=== PATIENT | female | born 1940 | race Caucasian/White ===

== ENCOUNTER 2020-09-20 07:59 | Outpatient (REF) | payer MEDICARE, SELFPAY ==
[2020-09-20 11:41] LABS: Hemoglobin 11.9 g/dl (12.0-16.0); Mean Corpuscular HGB Conc 33.1 g/dl (31.0-35.0); Mean Corpuscular Hemoglobin 29.5 pg (27.0-33.0); Mean Corpuscular Volume 89.3 fL (80-98); Mean Platelet Volume 8.9 fL (9.4-12.3); Platelet Count 347 X10*3/uL (160-400); Red Blood Count 4.03 X10*6/uL (4.20-5.50); Red Cell Distribution Width 13.1 % (11.0-16.0); White Blood Count 6.8 X10*3/uL (4.8-10.8)
[2020-09-20 11:52] LABS: Alanine Aminotransferase 24 U/L (0-31); Albumin Level 4.1 g/dL (3.5-5.0); Alkaline Phosphatase 96 U/L (39-117); Anion Gap 12 (12-20); Aspartate Amino Transferase 29 U/L (5-31); Bilirubin Total 0.8 mg/dL (0.0-1.0); Blood Urea Nitrogen 12 mg/dL (9-16); Calcium 9.4 mg/dL (8.4-10.2); Carbon Dioxide 25 mmol/L (22-29); Chloride 97 mmol/L (96-108); Estimated Glomerular Filt Rate > 60; Glucose Fasting 92 mg/dL (60-99); Potassium 4.4 mmol/L (3.3-5.1); Sodium 130 mmol/L (135-145)
[2020-09-20 11:53] LABS: B Type Natriuretic Peptide 197 pg/mL (<100)
== END 2020-09-20 08:00 | disposition home or self-care (01) ==
LOC: HO.HMGCLDS 07:59
PROVIDERS: PCP Internal Medicine; Visit Provider Internal Medicine
DX: I50.9 Heart failure, unspecified (principal); E87.1 Hypo-osmolality and hyponatremia
CPT/HCPCS: 36415; 80053; 83880; 85027

== ENCOUNTER 2021-01-24 09:20 | Outpatient (REF) | payer MEDICARE, SELFPAY ==
--- NOTE | 2021-01-24 09:31 | MHC.AU.ANR ---
Adult Audiological Evaluation Date of Visit: 01/24/21 Reason for Appointment: Audiological evaluation due to concern for decreased hearing. Ms. Cesar notes difficulties understanding speech, especially when in the presence of background noise. She notes that she can hear background sounds well, but feels she can't clearly understand speech. 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 Medical History: Medical History: Heart Problems, High Blood Pressure, Tobacco Use Medical History (Other): Cataract right eye, congestive heart failure, coronary artery disease, hyperlipidemia, hypoatremia Medication List: Atorvastatin 40 mg, Carvedilol 12.5 mg, Lisinopril 10 mg, Isosorbide 10 mg, aspirin 81mg Otoscopy: Right Ear: Unremarkable Left Ear: Unremarkable Tympanometry: Tympanometry performed due to: To assess integrity of the middle ear system Right Ear: Normal Middle Ear System (Type A) Left Ear: Normal Middle Ear System (Type A) Hearing Evaluation: Transducer(s) Used: Insert Earphones, Bone Conduction Method: Conventional Audiometry Stimuli Used: Pure Tones Right Ear: Description of Hearing: Mild sloping to moderately severe sensorineural hearing loss from 250-8000 Hz. Left Ear: Description of Hearing: Mild sloping to moderately severe sensorineural hearing loss from 250-8000 Hz. Speech Recognition Threshold (SRT): Method Used: Monitored Live Voice Stimuli Used: Spondee Words Right Ear: 35 dBHL Left Ear: 30 dBHL Word Discrimination: Method: Recorded Lists Word Lists Used: NU-6 Right Ear: 76% at 75 dBHL, 76% at 80 dBHL Left Ear: 76% at 75 dBHL, 76% at 80 dBHL Recommendations: Audiological re-evaluation in one year. Trial with amplification is recommended. Binaural amplification is recommended given type and degree of hearing loss and shared communication difficulties. Discussed hearing aid options with Ms. Cesar. She will consider her options and return for a hearing aid consultation if she decides she would like to proceed with hearing aids through our clinic. Medical clearance for hearing aid use is being requested from Ms. Cesar's primary care physician. Diagnosis: Primary Diagnosis: H90.3 Bilateral Sensorineural Hearing Loss Services Performed: Services Performed: Comprehensive Audiological Evaluation (CPT 96935) Tympanometry (CPT 39335) Signature: Provider: Franck Rogers, CCC-A
--- NOTE | 2021-01-24 09:33 | MHC.AU.MED ---
Medical Clearance for Hearing Instrumentation Date: 01/25/21 Patient Name: Marlene Cesar Date of : 1940 Referring Provider: Karen Silverio MD We have seen your patient on 01/24/21 and have determined that they are a candidate for amplification (See accompanying report). Specifically, they would benefit from: Hearing aid use in both ears There is a statute that addresses Medical Evaluation Requirements prior to fitting a patient with a hearing aid. According to [place] statute 265 CMR:6.03(1), (a) General. Except as provided in 265 CMR 6.03(1)(b), a hearing and speech assistant shall not sell a hearing aid unless the prospective user has presented to the hearing and speech assistant a written statement signed by a licensed physician that states that the patient's hearing loss has been medically evaluated and the patient may be considered a candidate for a hearing aid. The medical evaluation must have taken place within the preceding six months. Please note: Due to the [place] Statute referenced above, we cannot accept a signature other than that of a licensed physician. [employer] CLINICAL MANAGER and PA signatures cannot be accepted. I am in agreement with the above recommendation. There is no medical contraindication for hearing instrumentation. Physician Signature Date Physician Name (Printed)
== END 2021-01-24 09:21 | disposition home or self-care (01) ==
LOC: HO.SH 09:20
PROVIDERS: Visit Provider Internal Medicine
DX: H91.90 Unspecified hearing loss, unspecified ear (principal)
CPT/HCPCS: 92557; 92567

== ENCOUNTER 2021-02-09 08:27 | Outpatient (REF) | payer SELFPAY ==
--- NOTE | 2021-02-09 09:18 | MHC.AU.HAS ---
Hearing Aid Evaluation Date of Visit: 02/09/21 Historical Information: Description of Hearing: Mild sloping to moderately severe sensorineural hearing loss bilaterally. Current personal amplification information, if applicable: none Summary: Ms. Cesar was seen today to discuss hearing aid options. She was seen on 01/24/2021 for an audiological evaluation, at which time she was diagnosed with a bilateral hearing loss and binaural amplification was recommended. She is interested in purchasing a pair of hearing aids. She has never used hearing aids before. Discussed hearing aid styles and technologies. Patient would like to start with an entry-level, rechargeable, JAVI style hearing aid. Hearing Aid Prescription: Based on the individual?s shared listening needs, communication environments, dexterity, desire for connectivity, and personal preferences, the following prescription for amplification has been made: Right ear: Wire Worker: Phonak Model: Audeo P50-R Battery Size: Rechargeable Color: P1 - Sand Beige Lead Maintenance Technician: Size 1 M Type of Dome: Open Left ear: Left ear prescription to be same as Right Hearing Aid above: Wire Worker: Phonak Model: Audeo P50-R Battery Size: Rechargeable Color: P1 - Sand Beige Lead Maintenance Technician: Size 1 M Type of Dome: Open Plan of Care: Patient wishes to purchase hearing aids as prescribed Action Taken/Action Needed: Medical Clearance to be requested from PCP/ENT. Hearing Instrument Fitting to be scheduled when materials arrive. Hearing aids ordered. Patient paid $350 deposit today. Owes $3,550.00 at fitting. Primary Diagnosis: H90.3 Bilateral Sensorineural Hearing Loss Signature: Provider: Quinton Rogers, VERONICA-A
== END 2021-02-09 08:28 | disposition home or self-care (01) ==
LOC: HO.HAP 08:27
PROVIDERS: Visit Provider Internal Medicine
DX: Z46.1 Encounter for fitting and adjustment of hearing aid (principal); H90.3 Sensorineural hearing loss, bilateral
CPT/HCPCS: 92591

== ENCOUNTER 2021-02-22 08:27 | Outpatient (REF) | payer SELFPAY | END 2021-02-22 08:28 | disposition home or self-care (01) | LOC: HO.HAP 08:27 | PROVIDERS: Visit Provider Internal Medicine | DX: H90.3 Sensorineural hearing loss, bilateral (principal); Z46.1 Encounter for fitting and adjustment of hearing aid | CPT/HCPCS: V5261; V5299 ==

== ENCOUNTER 2021-03-16 09:25 | Outpatient (REF) | payer SELFPAY | END 2021-03-16 09:26 | disposition home or self-care (01) | LOC: HO.HAP 09:25 | PROVIDERS: Visit Provider Internal Medicine | DX: Z13.89 Encounter for screening for other disorder (principal) ==

== ENCOUNTER 2022-03-01 08:32 | Outpatient (REF) | payer MEDICARE, SELFPAY ==
[2022-03-01 11:09] LABS: MANUAL DIFF FLAG NO
[2022-03-01 11:27] LABS: Basophils Absolute Auto 0.1 X10*3/uL (0.0-0.2); Basophils Percent Auto 0.7 % (0-2); Eosinophils Absolute Auto 0.2 X10*3/uL (0.0-0.4); Eosinophils Percent Auto 2.4 % (0-4); Hematocrit 34.3 % (37.0-47.0); Hemoglobin 11.3 g/dl (12.0-16.0); Imm Gran Abs Auto 0.03 X10*3/uL (0.00-0.03); Imm Gran Pct Auto 0.3 % (0.0-0.4); Lymphocytes Absolute Auto 2.2 X10*3/uL (1.2-4.9); Lymphocytes Percent Auto 22.4 % (20-40); Mean Corpuscular HGB Conc 32.9 g/dl (31.0-35.0); Mean Corpuscular Hemoglobin 29.9 pg (27.0-33.0); Mean Corpuscular Volume 90.7 fL (80.0-98.0); Mean Platelet Volume 9.1 fL (9.4-12.3); Monocytes Absolute Auto 0.9 X10*3/uL (0.1-1.2); Monocytes Percent Auto 9.4 % (2-11); Neutrophils Absolute Auto 6.3 x10*3/uL (2.0-8.3); Neutrophils Percent Auto 64.8 % (45-73); Platelet Count 369 X10*3/uL (160-400); Red Blood Count 3.78 X10*6/uL (4.20-5.50); Red Cell Distribution Width 13.1 % (11.0-16.0); White Blood Count 9.7 X10*3/uL (4.8-10.8)
[2022-03-01 12:01] LABS: Alanine Aminotransferase 29 U/L (0-31); Albumin Level 4.1 g/dL (3.5-5.0); Alkaline Phosphatase 85 U/L (39-117); Anion Gap 13 (12-20); Aspartate Amino Transferase 37 U/L (5-31); Bilirubin Total 0.8 mg/dL (0.0-1.0); Blood Urea Nitrogen 12 mg/dL (9-16); Calcium 9.5 mg/dL (8.4-10.2); Carbon Dioxide 25 mmol/L (22-29); Chloride 98 mmol/L (96-108); Estimated Glomerular Filt Rate > 60; Glucose Random 92 mg/dL (60-115); Potassium 4.6 mmol/L (3.3-5.1); Sodium 131 mmol/L (135-145); Total Protein 7.1 g/dL (6.5-8.0)
[2022-03-01 12:04] LABS: TSH reflex Free T4 0.79 uIU/mL (0.32-4.0)
== END 2022-03-01 08:33 | disposition home or self-care (01) ==
LOC: HO.HMGCLDS 08:32
PROVIDERS: PCP Internal Medicine; Visit Provider Internal Medicine
DX: E87.1 Hypo-osmolality and hyponatremia (principal); E78.5 Hyperlipidemia, unspecified; I11.0 Hypertensive heart disease with heart failure; I50.9 Heart failure, unspecified
CPT/HCPCS: 36415; 80053; 84443; 85025

== ENCOUNTER 2022-11-23 09:42 | Outpatient (REF) | payer SELFPAY | END 2022-11-23 09:43 | disposition home or self-care (01) | LOC: HO.HAP 09:42 | PROVIDERS: Visit Provider Internal Medicine | DX: Z13.89 Encounter for screening for other disorder (principal) ==

== ENCOUNTER 2022-11-24 09:12 | Outpatient (REF) | payer SELFPAY | END 2022-11-24 09:13 | disposition home or self-care (01) | LOC: HO.HAP 09:12 | PROVIDERS: Visit Provider Internal Medicine | DX: Z13.89 Encounter for screening for other disorder (principal) ==

== ENCOUNTER 2023-08-30 12:04 | Outpatient (AMB) | payer MEDICARE, SELFPAY ==
[2023-08-30 12:10] VITALS: BP 138/82; PULSE 108; O2SAT 98; BMI 23.6
--- NOTE | 2023-08-30 12:10 | AM.OFFVISMDC ---
Intake Vital Signs 08/30/23 12:10 Height 5 ft Weight 121 lb BMI 23.6 BP 138/82 Blood Pressure Location Lt brachial Position Sitting Pulse 108 H Pulse Source Pulse Oximeter Pulse Oximetry (%) 98 Oxygen Delivery Method Room Air Intake Visit Reasons: SWV G0439 Intake Note: Pt is here today for her SWV Allergies No Known Allergies Allergy (Verified 08/30/23 12:10) HPI SWV G0439 HPI Details Initiated the conversation about Advanced Directives. Advanced Directives help? patients prepare for current and future decisions about their medical treatment? and place of care. Discussed with patient that it is a process where a patients? current condition and prognosis are reviewed, their wishes for information? regarding their illness are elicited, and likely medical dilemmas are presented? and options discussed. The form can be amended as needed, reviewed yearly and? make changes as needed Initiated the conversation about Advanced Directives. Advanced Directives help? patients prepare for current and future decisions about their medical treatment? and place of care. Discussed with patient that it is a process where a patients? current condition and prognosis are reviewed, their wishes for information? regarding their illness are elicited, and likely medical dilemmas are presented? and options discussed. The form can be amended as needed, reviewed yearly and? make changes as needed [facility] Medical History (Updated 08/30/23 @ 12:43 by Karen Silverio MD) Annual physical exam Hearing deficit Coronary artery disease Hypertension Hyperlipidemia Hyponatremia CHF, acute Tobacco abuse Cataract, right eye Family History Father Stroke Mother Asthma Social History Housing: House Patient Tobacco Use Status: Never used Tobacco e-Cigarette/Vaping Use: Never Used Current occupational status: retired Cognitive needs: No Hearing needs: No Vision needs: No Questionnaire Medicare Wellness Checkup What is your age?: 80 or older What gender do you identify with?: female During the past 4 weeks, how much have you been bothered by emotional problems such as feeling anxious, depressed, irritable, sad or downhearted, and blue?: not at all During the past 4 weeks, has your physical & emotional health limited your social activities with family, friends, neighbors, or groups?: not at all During the past 4 weeks, how much bodily pain have you generally had?: no pain During the past 4 weeks, was someone available to help you if you needed & wanted help?: yes, as much as I wanted During the past 4 weeks, what was the hardest physical activity you could do for at least 2 minutes?: moderate Can you get to places out of walking distance without help? (For eg., can you travel alone on buses, taxis or drive your car?): Yes Can you go shopping for groceries or clothes without someone's help?: Yes Can you prepare your own meals?: Yes Can you do your housework without help?: Yes Because of any health problems, do you need the help of another person with your personal care needs such as eating, bathing, dressing or getting around the house?: No Can you handle your own money without help?: Yes During the past 4 weeks, how would you rate your health in general?: very good During the past 4 weeks how have things been going for you?: very well; could hardly better Are you having difficulties driving your car?: no Do you always fasten your seat belt when you are in a car?: yes, sometimes During past 4 weeks, have you been bothered by the following: never: Falling or dizzy when standing up, Sexual problems?, Trouble eating well?, Teeth or denture problems?, Problems using the telephone? and Tiredness or fatigue? Have you fallen 2 or more times in the past year?: No Are you afraid of falling?: Yes Are you a smoker?: no During the past 4 weeks, how many drinks of wine, beer, or other alcoholic beverages did you have?: 1 drink or less per week Do you exercise for about 20 minutes 3 or more times a week?: yes, some of the time Have you been given information to help with the following?: no: Hazards in your house that might hurt you? and no: Keeping track of your medications? How often do you have trouble taking medicines the way you have been told to take them?: I always take medicine as prescribed How confident are you that you can control & manage most of your health problems?: very confident What is your race?: White Mini Mental State Exam (MMSE) Orientation What is the (year) (season) (date) (day) (month)?: year, season, date, day and month Where are we (state) (county) (town or city) (hospital) (floor)?: state, county, town or city, hospital/clinic and floor Registration Name of 3 unrelated objects clearly and slowly, then ask patient to repeat all 3 of them. (1st repeat determines score. Make sure they can repeat all three): object 1, object 2 and object 3 Attention & Calculation (CHOOSE ONE) Spell WORLD backwards (DLROW): 5 letters Recall Ask patient to repeat the 3 items from question #3.: object 1, object 2 and object 3 Language Show patient a wristwatch & ask what it is. Repeat for pencil.: watch and pencil Ask the patient to repeat the phrase 'No ifs, ands, or buts' after you.: correct Ask the patient to 'take a piece of paper with their right hand' 'fold paper in half' 'place paper on floor': take paper in right hand, fold paper in half and place paper on floor Print the sentence 'CLOSE YOUR EYES' on a piece. If patient actually closes eyes then score.: followed written direction Give patient a blank piece of paper & ask to write a sentence. Score if it contains a noun & verb.: sentence contains subject and verb Score Score: 29 PHQ-9 Over the last 2 weeks, how often have you been bothered by any of the following problems? 1. Little interest or pleasure in doing things: not at all 2. Feeling down, depressed, or hopeless: not at all 3. Trouble falling or staying asleep, or sleeping too much: not at all 4. Feeling tired or having little energy: not at all 5. Poor appetite or overeating: not at all 6. Feeling bad about yourself - or that you are a failure or have let yourself or your family down: not at all 7. Trouble concentrating on things, such as reading the newspaper or watching television: not at all 8. Moving or speaking so slowly that other people could have noticed. Or the opposite - being so fidgety or restless that you have been moving around a lot more than usual: not at all 9. Thoughts that you would be better off or of hurting yourself in some way: not at all Total score: 0 Source: Developed by Drs. Oli Reese, Melani Corona, Benny Levine and colleagues, with an educational tayolr from [employer]. Review of Systems Const All systems reviewed & are unremarkable except as noted in HPI and below Reports no additional complaints Eyes Reports no additional complaints ENT Reports no additional complaints Card Reports no additional complaints Resp Reports no additional complaints GI Reports no additional complaints Reports no additional complaints Physical Exam Vital Signs: Last Vital Signs Pulse 108 H 08/30/23 12:10 BP 138/82 08/30/23 12:10 Pulse Ox 98 08/30/23 12:10 Oxygen Delivery Method Room Air 08/30/23 12:10 BMI result Body Mass Index 23.6 Const General: no acute distress HEENT Head: Yes normal to inspection Ears: hearing grossly normal bilaterally Eyes General: appearance normal, both eyes and all related structures Neck Neck: Yes no lymphadenopathy and Yes supple Resp Effort & Inspection: normal respiratory effort Auscultation: clear to auscultation bilaterally Cardio Rhythm: regular rhythm Heart sounds: S1 normal heart sound present and S2 normal heart sound present GI Inspection: Yes normal to inspection Palpation (GI): Soft to palpation and No hepatosplenomegaly present Percussion: Yes normal to percussion Auscultation: normal bowel sounds Extrem General: Yes no clubbing, cyanosis or edema Assessment & Plan Assessment & Plan (1) CHF, acute: Comment: echo 07/2019, severely reduced LVEF, aneurysmal basal,lateral, wall, mild , mod MR cardiac cath occluded RCA07/2019, , Echo 07/2020 EF 30-40% Code(s): I50.9 - Heart failure, unspecified Plan: Continue current medications follow-up by [facility]. Patient declined fasting blood work (2) Hyperlipidemia: Code(s): E78.5 - Hyperlipidemia, unspecified Plan: Continue Lipitor (3) Hypertension: Code(s): I10 - Essential (primary) hypertension Plan: Continue current medications (4) Annual physical exam: Code(s): Z00.00 - Encounter for general adult medical examination without abnormal findings Plan: Well-balanced diet regular physical activity discussed with the patient Quality Reporting (2019) Depression/Bipolar (159/160/161/177) PHQ-9: Total score: 0 Coding Level of Care Code Medicare Subsequent (G0439) Diagnoses CHF, acute I50.9 Hyperlipidemia E78.5 Hypertension I10 Annual physical exam Z00.00 CPT Codes Advance Care Planning - Time spent: 1-15 minutes, not on file ([id number]) Advance Care Planning Advance Care Planning discussion: Exists, not on file Forms completed: Health Care Proxy Time spent: 1-15 minutes, not on file
== END 2023-08-30 12:40 | disposition home or self-care (01) ==
PROVIDERS: PCP Internal Medicine; Visit Provider Internal Medicine
DX: Z00.00 Encounter for general adult medical examination without abnormal findings (principal); I11.0 Hypertensive heart disease with heart failure; I50.9 Heart failure, unspecified; E78.5 Hyperlipidemia, unspecified
CPT/HCPCS: 1124F; G0439

== ENCOUNTER 2024-09-15 11:28 | Outpatient (AMB) | payer MEDICARE, SELFPAY ==
--- NOTE | 2024-09-15 11:29 | A.OFFVIS_ITS ---
Intake Vital Signs 09/15/24 11:30 Height 5 ft Weight 121 lb BMI 23.6 BP 118/76 Blood Pressure Location Lt brachial Position Sitting Respiration 20 Pulse 96 Pulse Source Palpation Temp 97.9 F Temp Source Oral Intake Visit Reasons: SWV G0439 Allergies No Known Allergies Allergy (Verified 09/15/24 11:33) Medication List - Last Reconciled 09/15/24 by Karen Silverio MD aspirin (Adult Aspirin Regimen) 81 mg PO DAILY atorvastatin 40 mg PO DAILY carvedilol 12.5 mg PO BID isosorbide mononitrate ER 30 mg PO DAILY lisinopril 10 mg PO DAILY HPI SWV G0439 HPI Details Initiated the conversation about Advanced Directives. Advanced Dir ectives help? patients prepare for current and future decisions about their medical treatment? and place of care. Discussed with patient that it is a process where a patients? current condition and prognosis are reviewed, their wishes for information? regarding their illness are elicited, and likely medical dilemmas are presented? and options discussed. The form can be amended as needed, reviewed yearly and? make changes as needed IPPE/AWV ? year old presents? for her ? Annual? Wellness Visit, initial visit.? Medical / Social History Reviewed? Past Medical History ?Yes? . ? [place]? of Care / Care Team list updated ?Yes . ? Surgical/Hospitalization? History ?Yes . ? Current Medications? (including OTC and supplements) ?Yes . ? Family History ?Yes? . ? Tobacco? Control form ?Yes . ? AUDIT-C (Alcohol use) form? ?Yes . ? Illicit drug use in Social? History ?Yes . ? Current diagnosis of? depression? ?No ? Appropriate PHQ2/PHQ9? completed ?Yes . ? Data entered by ?Medical? [facility] and reviewed by provider ? Fall Risk ? Fall? History? Have you had any falls with? injury in the past year? ?No . ? Have you had two or more? falls in the past year? ?No . ? Fall Risk Assessment: ?No? falls in the past year . ? HRA filled out by? the patient, reviewed by Provider and scanned. ? IPPE/AWV ? Balance? [place]? ?Yes . ? Tandem? walk ?Yes . ? Walk and? Turn ?Yes . ? Rise from? sit to stand ?Yes . ?Vision? Corrective? lens ?Yes ? Vision? screen ? Up-to-date, has an appointment [] for vision? screening and glaucoma screening ?Hearing? Whisper? test ?pass .? Initiated the conversation about Advanced Directives. Advanced Directives help? patients prepare for current and future decisions about their medical treatment? and place of care. Discussed with patient that it is a process where a patients? current condition and prognosis are reviewed, their wishes for information? regarding their illness are elicited, and likely medical dilemmas are presented? and options discussed. The form can be amended as needed, reviewed yearly and? make changes as needed Written? Plan?Completed. See Patient? Documents. [facility] Medical History Annual physical exam Hearing deficit Coronary artery disease Hypertension Hyperlipidemia Hyponatremia CHF, acute Tobacco abuse Cataract, right eye Family History Father Stroke Mother Asthma Social History Housing: House Patient Tobacco Use Status: Never used Tobacco e-Cigarette/Vaping Use: Never Used Current occupational status: retired Cognitive needs: No Hearing needs: No Vision needs: No Questionnaire Medicare Wellness Checkup What is your age?: 80 or older What gender do you identify with?: female During the past 4 weeks, how much have you been bothered by emotional problems such as feeling anxious, depressed, irritable, sad or downhearted, and blue?: not at all During the past 4 weeks, has your physical & emotional health limited your social activities with family, friends, neighbors, or groups?: not at all During the past 4 weeks, how much bodily pain have you generally had?: very mild pain During the past 4 weeks, was someone available to help you if you needed & wanted help?: no, not at all During the past 4 weeks, what was the hardest physical activity you could do for at least 2 minutes?: moderate Can you get to places out of walking distance without help? (For eg., can you travel alone on buses, taxis or drive your car?): Yes Can you go shopping for groceries or clothes without someone's help?: Yes Can you prepare your own meals?: Yes Can you do your housework without help?: Yes Because of any health problems, do you need the help of another person with your personal care needs such as eating, bathing, dressing or getting around the house?: No Can you handle your own money without help?: Yes During the past 4 weeks, how would you rate your health in general?: very good During the past 4 weeks how have things been going for you?: very well; could hardly better Are you having difficulties driving your car?: no Do you always fasten your seat belt when you are in a car?: yes, sometimes During past 4 weeks, have you been bothered by the following: never: Falling or dizzy when standing up, Sexual problems?, Trouble eating well?, Teeth or denture problems?, Problems using the telephone? and Tiredness or fatigue? Have you fallen 2 or more times in the past year?: No Are you afraid of falling?: Yes Are you a smoker?: no During the past 4 weeks, how many drinks of wine, beer, or other alcoholic beverages did you have?: 1 drink or less per week Do you exercise for about 20 minutes 3 or more times a week?: no, I usually do not exercise this much Have you been given information to help with the following?: no: Hazards in your house that might hurt you? and no: Keeping track of your medications? How often do you have trouble taking medicines the way you have been told to take them?: I always take medicine as prescribed How confident are you that you can control & manage most of your health problems?: very confident What is your race?: White Mini Mental State Exam (MMSE) Orientation What is the (year) (season) (date) (day) (month)?: year, season, date, day and month Where are we (state) (county) (town or city) (hospital) (floor)?: state, county, town or city, hospital/clinic and floor Registration Name of 3 unrelated objects clearly and slowly, then ask patient to repeat all 3 of them. (1st repeat determines score. Make sure they can repeat all three): object 1, object 2 and object 3 Attention & Calculation (CHOOSE ONE) Spell WORLD backwards (DLROW): 5 letters Recall Ask patient to repeat the 3 items from question #3.: object 1, object 2 and object 3 Language Show patient a wristwatch & ask what it is. Repeat for pencil.: watch and pencil Ask the patient to repeat the phrase 'No ifs, ands, or buts' after you.: correct Ask the patient to 'take a piece of paper with their right hand' 'fold paper in half' 'place paper on floor': take paper in right hand, fold paper in half and place paper on floor Print the sentence 'CLOSE YOUR EYES' on a piece. If patient actually closes eyes then score.: followed written direction Give patient a blank piece of paper & ask to write a sentence. Score if it contains a noun & verb.: sentence contains subject and verb Score Score: 29 Activity of Daily Living Bathing - sponge bath, tub bath or shower: receives no assistance (gets in/out by self, if usual bathing means Dressing - getting clothes from closets & drawers, including inner/outer garments & fasteners.: gets clothes & gets completely dressed without help Toileting - going to the 'toilet room' for urine/bowel elimination & cleaning self/arranging clothes: goes to toilet room, cleans self, arranges clothes without help Transfer: moves in & out of bed and chair without help (may use support object) Continence: controls urination/bowel movements completely by self Feeding: feeds self without help Total Score: 0 Information obtained from: patient Using telephone: independent Traveling: independent Shopping: independent Preparing meals: independent Housework: independent Taking medicine: independent Managing money: independent PHQ-9 Over the last 2 weeks, how often have you been bothered by any of the following problems? 1. Little interest or pleasure in doing things: not at all 2. Feeling down, depressed, or hopeless: not at all 3. Trouble falling or staying asleep, or sleeping too much: not at all 4. Feeling tired or having little energy: not at all 5. Poor appetite or overeating: not at all 6. Feeling bad about yourself - or that you are a failure or have let yourself or your family down: not at all 7. Trouble concentrating on things, such as reading the newspaper or watching television: not at all 8. Moving or speaking so slowly that other people could have noticed. Or the opposite - being so fidgety or restless that you have been moving around a lot more than usual: not at all 9. Thoughts that you would be better off or of hurting yourself in some way: not at all Total score: 0 Depression Screening Interpretation: Negative Depression Screening Done: Yes 25424 - PHQ-9 Billing: Yes Source: Developed by Drs. Oli Reese, Melani Corona, Benny Levine and colleagues, with an educational taylor from [employer] Review of Systems Const All systems reviewed & are unremarkable except as noted in HPI and below Reports no additional complaints Eyes Reports no additional complaints ENT Reports no additional complaints Card Reports no additional complaints Resp Reports no additional complaints GI Reports no additional complaints Reports no additional complaints Physical Exam Vital Signs: Last Vital Signs Temp 97.9 F 09/15/24 11:30 Pulse 96 09/15/24 11:30 Resp 20 09/15/24 11:30 BP 118/76 09/15/24 11:30 BMI result Body Mass Index 23.6 Const General: no acute distress HEENT Head: Yes normal to inspection Neck Neck: Yes no lymphadenopathy and Yes supple Resp Effort & Inspection: normal respiratory effort Auscultation: clear to auscultation bilaterally Cardio Rhythm: regular rhythm Heart sounds: S1 normal heart sound present and S2 normal heart sound present GI Inspection: Yes normal to inspection Palpation (GI): Soft to palpation Percussion: Yes normal to percussion Auscultation: normal bowel sounds Assessment & Plan Assessment & Plan (1) CHF, acute: Comment: echo 07/2019, severely reduced LVEF, aneurysmal basal,lateral, wall, mild , mod MR cardiac cath occluded RCA07/2019, , Echo 07/2020 EF 30-40% Code(s): I50.9 - Heart failure, unspecified Plan: cont meds, and f/u with cardiology (2) Hyperlipidemia: Code(s): E78.5 - Hyperlipidemia, unspecified Plan: cont statin (3) Hypertension: Code(s): I10 - Essential (primary) hypertension Plan: cont meds (4) Annual physical exam: Code(s): Z00.00 - Encounter for general adult medical examination without abnormal findings Plan: well balanced diet, regular exercise discussed Orders: Orders TSH reflex Free T4 Today E78.5 - Hyperlipidemia, unspecified, I10 - Essential (primary) hypertension, I50.9 - Heart failure, unspecified, Z00.00 - Encounter for general adult medical examination without abnormal findings Vitamin D 25-OH Total Today E55.9 - Vitamin D deficiency, unspecified, E78.5 - Hyperlipidemia, unspecified Comprehensive [place]. Panel Fast Today E78.5 - Hyperlipidemia, unspecified, I10 - Essential (primary) hypertension, I50.9 - Heart failure, unspecified, Z00.00 - Encounter for general adult medical examination without abnormal findings Complete Blood Count Auto Diff Today E78.5 - Hyperlipidemia, unspecified, I10 - Essential (primary) hypertension, I50.9 - Heart failure, unspecified, Z00.00 - Encounter for general adult medical examination without abnormal findings Lipid Panel Today E78.5 - Hyperlipidemia, unspecified, I10 - Essential (primary) hypertension, I50.9 - Heart failure, unspecified, Z00.00 - Encounter for general adult medical examination without abnormal findings Quality Reporting (2019) Depression/Bipolar (159/160/161/177) PHQ-9: Total score: 0 Coding Level of Care Code Medicare Subsequent (G0439) Diagnoses CHF, acute I50.9 Hyperlipidemia E78.5 Hypertension I10 Annual physical exam Z00.00 CPT Codes Advance Care Planning - Advance Care Planning discussion: On file, no changes ([id number]) Advance Care Planning - Time spent: 1-15 minutes, on File ([id number]) Additional Codes PHQ-9 - 39034 - PHQ-9 Billing: Yes ([id number]) Advance Care Planning Advance Care Planning discussion: On file, no changes Forms completed: Health Care Proxy Time spent: 1-15 minutes, on File Did not discuss due to Cultural/Spiritual beliefs: Yes
[2024-09-15 11:30] VITALS: BP 118/76; PULSE 96; RESP 20; TEMP 36.6; BMI 23.6
== END 2024-09-15 12:13 | disposition home or self-care (01) ==
LOC: HO.HMCC 11:29
PROVIDERS: PCP Internal Medicine; Visit Provider Internal Medicine
DX: Z00.00 Encounter for general adult medical examination without abnormal findings (principal); I11.0 Hypertensive heart disease with heart failure; I50.9 Heart failure, unspecified; E78.5 Hyperlipidemia, unspecified

== ENCOUNTER → 2024-09-15 11:28 | Outpatient (BNVA) | payer MEDICARE, SELFPAY | PROVIDERS: PCP Internal Medicine; Visit Provider Internal Medicine | DX: Z00.00 Encounter for general adult medical examination without abnormal findings (principal); I11.0 Hypertensive heart disease with heart failure; I50.9 Heart failure, unspecified; E78.5 Hyperlipidemia, unspecified | CPT/HCPCS: 96127 ==

== ENCOUNTER 2024-09-24 08:47 | Outpatient (REF) | payer MEDICARE, SELFPAY ==
[2024-09-24 10:04] LABS: MANUAL DIFF FLAG NO
[2024-09-24 10:19] LABS: Basophils Absolute Auto 0.1 X10*3/uL (0.0-0.2); Basophils Percent Auto 0.8 % (0-2); Eosinophils Absolute Auto 0.3 X10*3/uL (0.0-0.4); Eosinophils Percent Auto 3.4 % (0-4); Hematocrit 37.3 % (37.0-47.0); Hemoglobin 12.8 g/dl (12.0-16.0); Imm Gran Abs Auto 0.02 X10*3/uL (0.00-0.03); Imm Gran Pct Auto 0.2 % (0.0-0.4); Lymphocytes Absolute Auto 2.2 X10*3/uL (1.2-4.9); Mean Corpuscular HGB Conc 34.3 g/dl (31.0-35.0); Mean Corpuscular Hemoglobin 30.5 pg (27.0-33.0); Mean Platelet Volume 8.7 fL (9.4-12.3); Monocytes Absolute Auto 0.8 X10*3/uL (0.1-1.2); Monocytes Percent Auto 9.3 % (2-11); Neutrophils Absolute Auto 5.6 x10*3/uL (2.0-8.3); Neutrophils Percent Auto 62.3 % (45-73); Platelet Count 354 X10*3/uL (160-400); Red Blood Count 4.19 X10*6/uL (4.20-5.50); Red Cell Distribution Width 13.3 % (11.0-16.0)
[2024-09-24 11:07] LABS: Alanine Aminotransferase 14 U/L (0-31); Albumin Level 4.1 g/dL (3.5-5.0); Alkaline Phosphatase 90 U/L (39-117); Anion Gap 11 (12-20); Aspartate Amino Transferase 37 U/L (5-31); Blood Urea Nitrogen 13 mg/dL (9-16); Calcium 9.5 mg/dL (8.4-10.2); Carbon Dioxide 22 mmol/L (22-29); Chloride 103 mmol/L (96-108); Cholesterol 133 mg/dL (<200); Estimated Glomerular Filt Rate > 60; Glucose Fasting 105 mg/dL (60-99); HDL Cholesterol 61 mg/dL (>40); LDL Cholesterol Calculated 58 mg/dL (<100); Potassium 4.3 mmol/L (3.3-5.1); Sodium 132 mmol/L (135-145); TSH reflex Free T4 1.07 uIU/mL (0.32-4.0); Total Protein 7.4 g/dL (6.5-8.0); Triglycerides 71 mg/dL (<150); Vitamin D 25-OH Total 11.8 ng/mL (>30)
== END 2024-09-24 08:48 | disposition home or self-care (01) ==
LOC: HO.HMGCLDS 08:47
PROVIDERS: PCP Internal Medicine; Visit Provider Internal Medicine
DX: Z00.00 Encounter for general adult medical examination without abnormal findings (principal); E78.5 Hyperlipidemia, unspecified; I10 Essential (primary) hypertension; I50.9 Heart failure, unspecified; E55.9 Vitamin D deficiency, unspecified
CPT/HCPCS: 36415; 80053; 80061; 82306; 84443; 85025

== ENCOUNTER 2024-12-23 01:09 | Emergency (ER) | payer MEDICARE, SELFPAY ==
[2024-12-23 01:10] VITALS: BMI 28.7
--- NOTE | 2024-12-23 01:20 | ECG_ITS ---
Test Reason : CARDIAC ARREST Blood Pressure : */* mmHG Vent. Rate : 133 BPM Atrial Rate : * BPM P-R Int : * ms QRS Dur : 122 ms QT Int : 378 ms P-R-T Axes : * 83 108 degrees QTcB Int : 562 ms Undetermined rhythm Inferior infarct , possibly acute Marked ST abnormality, possible lateral subendocardial injury ACUTE TN / STEMI Consider right ventricular involvement in acute inferior infarct Abnormal ECG When compared with ECG of 23-Dec-2024 01:21, No significant changes seen Referred By: Megan Slois Electronically Signed By: KAYDEN MC
--- NOTE | 2024-12-23 01:27 | ED.SYNCOPE ---
HPI - Syncope General Chief Complaint: Cardiac Arrest/CPR Stated Complaint: CARDIAC ARREST Time Seen by Provider: 12/23/24 01:19 Source: family, EMS, RN notes reviewed and old records reviewed Mode of arrival: EMS Limitations: altered mental status History of Present Illness ED Provider: Dr. Megan Solis HPI narrative: 84-year-old female with unclear past medical history presenting in cardiac arrest from home. EMS reports they are called to the home of 84-year-old female who initially complained of shortness of breath, became unresponsive with a witnessed arrest by family and police department who were on scene. CPR was initiated immediately. Initial rhythm was ventricular fibrillation. Was defibrillated and went into asystole. She had 8 rounds of epinephrine given in route. Upon arrival to the emergency department, she was in a narrow complex tachycardia with a pulse. EMS reports no medical history. Family is in route. Related Data Home Medications ?Medication ?Instructions ?Recorded ?Confirmed aspirin 81 mg tablet,delayed 81 mg PO DAILY 03/13/20 09/15/24 release (Adult Aspirin Regimen) Previous Rx's ?Medication ?Instructions ?Recorded carvedilol 12.5 mg tablet 12.5 mg PO BID #180 tabs 03/07/24 atorvastatin 40 mg tablet 40 mg PO DAILY #90 tabs 07/16/24 isosorbide mononitrate 30 mg 30 mg PO DAILY #90 tabs 10/02/24 tablet,extended release 24 hr lisinopril 10 mg tablet 10 mg PO DAILY #90 tabs 10/02/24 Allergies Allergy/AdvReac Type Severity Reaction Status Date / Time No Known Allergies Allergy Verified 12/23/24 03:32 Review of Systems Review of Systems: Yes unobtainable due to endotracheal tube PMFSH Past Medical History Source: obtained from family (CHF, CAD) Medical History Annual physical exam Hearing deficit Coronary artery disease Hypertension Hyperlipidemia Hyponatremia CHF, acute Tobacco abuse Cataract, right eye Family History Family History Father Stroke Mother Asthma Social History Social History Housing: House Patient Tobacco Use Status: Never used Tobacco e-Cigarette/Vaping Use: Never Used Advance Directives: No Advance Directives Information Provided: No Current occupational status: retired Cognitive needs: No Hearing needs: No Vision needs: No Physical Exam Vital Signs: Vital Signs: Last Vital Signs FiO2 100 12/23/24 01:45 BMI result Body Mass Index 28.7 GENERAL: Unresponsive, intubated, GCS 3. SKIN: Pale, mottled extremities. HEENT: Normocephalic, atraumatic. CHEST: Pulseless, strong femoral pulses with CPR. PULMONARY: Apneic, bilateral breath sounds with BVM ABDOMINAL: Soft, nondistended. MUSCULOSKELETAL: No obvious injury, 2+ pitting edema bilateral LE. NEURO: GCS 3. Medical Decision Making Medical Decision Making MDM Narrative: 84-year-old female with history of CAD, CHF presenting and cardiopulmonary arrest by EMS. ACLS protocol was followed in route with a rounds of epinephrine given. Total downtime was approximately 36 minutes prior to arrival to the emergency department where she had obtained ROSC. Differential diagnosis includes AMI, decompensated heart failure, massive PE, electrolyte abnormality, fatal arrhythmia, among others. Upon arrival to the emergency department, continued ACLS protocol followed. 1:09 a.m.ROSC achieved. Patient has a narrow complex tachycardia. EKG, chest x-ray, sodium bicarb, norepinephrine initiated. Approximately 35 minute downtime per EMS. Eight rounds of epi en route. Bedside point of care ultrasound shows poor contractility globally. No regional wall motion abnormalities. No significant valvular dysfunction. No pericardial effusion. 1:21 a.m. EKG shows inferior wall ST elevations with reciprocal lateral ST depressions, nonspecific interventricular conduction delay with a QRS of 158, rightward axis. 1:30 a.m. contacted [facility] for potential transfer for STEMI. Patient is intermittently losing pulses though and I feel that she may be too unstable for transport at this time. 1:40 a.m. family arrived to report full history and HPI. Evidently she has history of IL and CHF. She also was having some shortness of breath tonight, her son came over to check on her noted her to be very short of breath. He called 911 and the police arrived. At that point she had been talking when suddenly she stated ?I do not think I am going to make it? and promptly be went unconscious. CPR was initiated immediately by police. She had taken some Tums for indigestion just prior to this. No other illness reported according to her son. 2:09 a.m. Extensive discussion with family regarding goals of care. Family reports she would not want to be on life support. They are requesting withdrawal of care at this time. Stopped Levophed drip. Patient extubated. 2:22 a.m. time of pronounced 2:55 a.m. case discussed with medical imaging tech's office (Vickie Ortiz) who declines case. Differential Diagnosis Differential Diagnoses: The differential diagnosis associated with the presentation includes (As above) Admission/Observation Consideration of admission/observation: Escalation of care including admission/observation considered Consult Healthcare Provider Management of the patient was discussed with: Corporate Communications Intern ([facility] transfer line for STEMI, medical imaging tech) Lab Data MDM Lab Attestation statement: I reviewed the patient's lab results. Labs: Lab Results 12/23/24 Range/Units 01:13 POC Glucose 194 H (60-115) mg/dL Independent Interpretation I performed an independent interpretation of an: EKG and Rhythm Strip Interpretation: 1:21 a.m. EKG shows inferior wall ST elevations with reciprocal lateral ST depressions, nonspecific interventricular conduction delay with a QRS of 158, rightward axis. Independent Historian Clinical information obtained from an independent historian. History obtained from or confirmed by: EMS and Other (son) External Record Review External record reviewed: Outpatient record and Primary care record Chronic Conditions Patient?s care impacted by: Hypertension and Other (CAD, CHF) Procedures Procedure Narrative Procedure Narrative: 01:20: I was called to the bedside to assist in performing point of care ultrasound/echo after patient had return of spontaneous circulation see my procedure note below (Cyrus Parr MD) EMERGENCY ULTRASOUND INTERPRETATION-Limited Echocardiography [This study was ordered, performed, and interpreted by myself. The study reveals: Impression: Poor LV function, global hypokinesis, NO RV DYSFUNCTION, NO PERICARDIAL EFFUSION] [Emergent Cardiac for Indication: Views Used: PLAX, PSSA, A4, SX, IVC Pericardial Effusion/Tamponade Findings: NONE RV Dilation (> LV diam in 4ch apical): NONE Global LV Fxn: Poor LV function with global hypokinesis IVC Dilation and Resp Variation: NORMAL Performed by: MD Keshav Images were stored CPT:40030] Ultrasound ED POC Ultrasound: Bedside point of care ultrasound shows poor contractility globally. No regional wall motion abnormalities. No significant valvular dysfunction. No pericardial effusion. Critical Care Time Critical Care Time Critical Care Time: Yes Total Critical Care Time: 55 Attestation: Time is exclusive of separately billable procedures. Time includes: direct patient care, patient reassessment, coordination of patient care, interpretation of data (laboratory data, pulse oximetry, arterial blood gases and chest xrays), review of patient's medical records, medical consultation and documentation of patient care. Procedures excluded from critical care time: central intravenous line placement and electrocardiography. Discharge Plan Discharge Clinical Impression: Cardiopulmonary arrest, Acute inferior myocardial infarction Patient Disposition: Date/Time: 12/23/24 02:22
--- NOTE | 2024-12-23 01:30 | ECG_ITS ---
Test Reason : CARDIAC ARREST Blood Pressure : */* mmHG Vent. Rate : 122 BPM Atrial Rate : * BPM P-R Int : * ms QRS Dur : 158 ms QT Int : 444 ms P-R-T Axes : * 118 72 degrees QTcB Int : 632 ms Undetermined rhythm Right bundle branch block Left posterior fascicular block Bifascicular block Inferior infarct , age undetermined T wave abnormality, consider lateral ischemia Abnormal ECG No previous ECGs available Referred By: Megan Solis Electronically Signed By: KAYDEN MC
[2024-12-23 01:45] VITALS: BP 121/94; PULSE 77; O2SAT 82
[2024-12-23 02:44] LABS: Glucose, Whole Blood 194 mg/dL (60-115)
== END 2024-12-23 05:06 | disposition expired ==
PROVIDERS: Emergency Provider Emergency Medicine
DX: I46.9 Cardiac arrest, cause unspecified (principal); I21.9 Acute myocardial infarction, unspecified
CPT/HCPCS: 82947; 93005; 94002; 96374; 96375; 99282; 99291; J0168; J0618

== ENCOUNTER → 2024-12-23 01:30 | Outpatient (BNV) | payer MEDICARE, SELFPAY | PROVIDERS: Emergency Provider Emergency Medicine; Visit Provider Internal Medicine | DX: I21.3 ST elevation (STEMI) myocardial infarction of unspecified site (principal); I45.2 Bifascicular block | CPT/HCPCS: 93010 ==